=== PATIENT | female | born 1945 | race Caucasian/White ===

== ENCOUNTER 2018-03-15 11:26 | Inpatient (IN) | payer OTHER ==
[~2018-03-15] VITALS: Ht 152.4 cm; Wt 53.0 kg
[~2018-03-15 11:26] MED LIST: ACET300T4 PO; CARI-277 PO; ENAL2.5T PO; LEVO150T68 PO; LEVO175T31 PO; VENL150C2 PO
[2018-03-15 13:05] LABS: Anion Gap 13 (5-15); Blood Urea Nitrogen 36 mg/dL (7-18); Carbon Dioxide 19 mmol/L (21-32); Chloride 95 mmol/L (98-107); Glucose 199 mg/dL (74-106); Potassium 4.4 mmol/L (3.5-5.1); Sodium 127 mmol/L (136-145)
[2018-03-15 13:06] LABS: Hemoglobin 11.3 g/dL (12.2-16.2)
[2018-03-15 13:07] LABS: Alanine Aminotransferase 11 U/L (13-56); Aspartate Aminotransferase 5 U/L (15-37); BUN/Creatinine Ratio 46.2; GFR African American 93 mL/min; GFR Non-African American 77 mL/min; Hematocrit 34.2 % (36.0-46.0); Mean Corpuscular Hemoglobin 29.6 pg (28.0-32.0); Mean Corpuscular Hgb Conc. 33.1 g/dL (32.0-36.0); Mean Corpuscular Volume 89.3 fL (80.0-100.0); Platelet Count (auto) 738 10^3/uL (140-450); Red Blood Cells 3.83 10^6/uL (4.0-5.20); Red Cell Distribution Width 15.2 % (11.8-14.3); White Blood Cell 22.6 10^3/uL (4.4-10.8)
[2018-03-15 13:11] LABS: Alkaline Phosphatase 122 U/L (45-117); Bilirubin, Total 0.2 mg/dL (0.2-1.0)
[2018-03-15 13:12] LABS: Basophils % (manual) 0 (0.0-2.0); Blast Cells 0; Eosinophils % (manual) 0 (0-7); Metamyelocytes % 0; Myelocytes % 0; Promyelocytes % 0; Reactive Lymphocytes 0
[2018-03-15] MEDS ORDERED: SODIUM CHLORIDE 0.9% 1,000 ML IVB ONE (13:33)
[2018-03-15] MEDS ORDERED: LEVOFLOXACIN 250MG 50 ML IV ONE (13:45)
[2018-03-15] MEDS ORDERED: metroNIDAZOLE 500MG/100ML 100 ML IV ONE (13:45)
[2018-03-15] MEDS ORDERED: ONDANSETRON HCL 4 MG/2 ML VIAL IV ONE (13:45)
[2018-03-15] MEDS ORDERED: MORPHINE SULFATE 4 MG/ML SYR/VIAL IV ONE (14:00)
[2018-03-15] MEDS ORDERED: SODIUM CHLORIDE 0.9% 1,000 ML IV SCH (14:07)
[2018-03-15] MEDS ORDERED: LEVOFLOXACIN 500MG 100 ML IV ONE (14:15)
[2018-03-15] MEDS ORDERED: PANTOPRAZOLE 40 MG/10 ML VIAL IV ONE (14:15)
[2018-03-15] MEDS ORDERED: NITROGLYCERIN 0.4 MG SL TAB SL PRN (14:15)
[2018-03-15] MEDS ORDERED: MORPHINE SULFATE 4 MG/ML SYR/VIAL IV PRN (14:15)
[2018-03-15] MEDS ORDERED: GASTROGRAFIN 30 ML SOL ONE (14:16)
[2018-03-15 14:21] LABS: Magnesium 1.8 mg/dL (1.6-2.6)
[2018-03-15 14:27] LABS: Band Neutrophils % (manual) 5; Lymphocytes % (manual) 3 (10.0-50.0); Monocytes % (manual) 4 (0-12)
[2018-03-15 14:28] LABS: INR 1.2 (0.9-1.15); Partial Thromboplastin Time 30.1 sec (23.78-33.04); Prothrombin Time 12.7 sec (9.27-12.13)
[2018-03-15] MEDS: SODIUM CHLORIDE 0.9% 1,000 ML IV SCH (14:59)
[2018-03-15] MEDS: MORPHINE SULFATE 4 MG/ML SYR/VIAL IV PRN ×2 (15:18→19:34)
[2018-03-15 15:24] LABS: Lactic Acid w/Reflex 3.5 mmol/L (0.4-2.0)
[2018-03-15] MEDS ORDERED: HYDROmorphone HCL 2 MG/ML VL IV ONE (16:00)
[2018-03-15] MEDS ORDERED: IOHEXOL 300 MG/ML 100ML BOTTLE IJ ONE (16:31)
[2018-03-15] MEDS: metroNIDAZOLE 500MG/100ML 100 ML IV SCH (17:33)
[2018-03-15] MEDS: ACCU-CHEK COMFORT CURVE STRIP VI SCH (17:43)
[2018-03-15] MEDS: InsuLIN REG 1unit/0.01ml Soln (100units/ml) SC SCH (17:49)
[2018-03-15] MEDS ORDERED: ALBUTEROL SULF 2.5 MG/0.5ML(0.5%) NEB SOLN NEB PRN (20:00)
[2018-03-15 21:07] VITALS: BP 117/72
[2018-03-15 22:37] VITALS: BP 98/66
[2018-03-16] VITALS (56 sets, daily range): BP systolic 75–136; BP diastolic 48–96
[2018-03-16] MEDS: PANTOPRAZOLE 40 MG/10 ML VIAL IV SCH ×3 (00:35→21:24)
[2018-03-16] MEDS: metroNIDAZOLE 500MG/100ML 100 ML IV SCH ×5 (00:35→23:33)
[2018-03-16] MEDS: ACCU-CHEK COMFORT CURVE STRIP VI SCH ×5 (00:35→23:33)
[2018-03-16] MEDS: SODIUM CHLORIDE 0.9% 1,000 ML IV SCH ×3 (00:36→22:17)
[2018-03-16] MEDS: InsuLIN REG 1unit/0.01ml Soln (100units/ml) SC SCH ×5 (00:52→23:33)
[2018-03-16] MEDS: IPRATROPIUM BROM 0.5 MG/2.5ML INH SOL NEB SCH ×4 (01:00→18:57)
[2018-03-16] MEDS: ALBUTEROL SULF 2.5 MG/0.5ML(0.5%) NEB SOLN NEB SCH ×6 (01:00→18:57)
[2018-03-16] MEDS: DEXTROSE (50%) 50ML SYRG IV PRN ×3 (01:00→23:34)
[2018-03-16 01:27] LABS: Hemoglobin 13.2 g/dL (12.2-16.2)
[2018-03-16] MEDS ORDERED: HYDROmorphone HCL 2 MG/ML VL IV ONE (01:30)
[2018-03-16] MEDS ORDERED: D5W/SOD CHLO 0.9% 1,000 ML IV SCH (01:30)
[2018-03-16] MEDS ORDERED: VANCOMYCIN PER PHARMACY 0 MG IV SCH ×2 (03:15→07:15)
[2018-03-16] MEDS ORDERED: VANCOMYCIN 1GM/250ML 250 ML IV ONE (03:30)
[2018-03-16] MEDS ORDERED: ONDANSETRON HCL 4 MG/2 ML VIAL ONE (04:10)
[2018-03-16] MEDS ORDERED: ONDANSETRON HCL 4 MG/2 ML VIAL IV ONE ×2 (04:10→06:45)
[2018-03-16] MEDS ORDERED: HYDROmorphone HCL 2 MG/ML VL ONE ×2 (04:45→06:11)
[2018-03-16] MEDS ORDERED: fentaNYL CITRATE 100 MCG/2 ML VL ONE (04:45)
[2018-03-16] MEDS ORDERED: ETOMIDATE (2MG/ML) 20ML VIAL IV ONE (04:45)
[2018-03-16] MEDS ORDERED: DEXAMETHASONE SOD PHOS 10MG/1ML VIAL INJ ONE (04:45)
[2018-03-16] MEDS ORDERED: MIDAZOLAM HCL 1MG/1ML-2 ML VIAL ONE ×2 (04:45→06:12)
[2018-03-16] MEDS ORDERED: ROCURONIUM 10MG/ML 10ML VIAL IV ONE (04:46)
[2018-03-16 04:47] LABS: Basophils # (auto) 0 uL; Basophils % (auto) 0.1 % (0.0-2.0); Eosinophils # (auto) 0 uL; Hematocrit 37.7 % (36.0-46.0); Hemoglobin 12.1 g/dL (12.2-16.2); Lymphocytes # (auto) 0.4 uL; Lymphocytes % (auto) 2.5 % (10.0-50.0); Mean Corpuscular Hemoglobin 28.9 pg (28.0-32.0); Mean Corpuscular Hgb Conc. 32.2 g/dL (32.0-36.0); Mean Corpuscular Volume 89.7 fL (80.0-100.0); Monocytes # (auto) 0.5 uL; Monocytes % (auto) 2.9 % (0.0-12.0); Neutrophils # (auto) 16.1 uL; Neutrophils % (auto) 94.5 % (37.0-80.0); Platelet Count (auto) 579 10^3/uL (140-450); Red Blood Cells 4.21 10^6/uL (4.0-5.20); Red Cell Distribution Width 15.3 % (11.8-14.3); White Blood Cell 17.1 10^3/uL (4.4-10.8)
[2018-03-16] MEDS ORDERED: metroNIDAZOLE 500MG/100ML 100 ML IV ONE (04:50)
[2018-03-16 04:55] LABS: Albumin 1.7 g/dL (3.4-5.0); Calcium 7.6 mg/dL (8.5-10.1); Potassium 4.8 mmol/L (3.5-5.1)
[2018-03-16 04:58] LABS: BUN/Creatinine Ratio 34.2; Bilirubin, Total 0.2 mg/dL (0.2-1.0); Total Protein 4.7 g/dL (6.4-8.2)
[2018-03-16] MEDS ORDERED: SUCCINYLCHOLINE CHLORIDE 20 MG/ML 10ML VIAL IV ONE (05:01)
[2018-03-16] MEDS ORDERED: ePHEDrine SULFATE 50 MG/ML AMP IV PRN (06:45)
[2018-03-16] MEDS ORDERED: MIDAZOLAM HCL 1MG/1ML-2 ML VIAL IV PRN (06:45)
[2018-03-16] MEDS ORDERED: HYDROmorphone HCL 2 MG/ML VL IV PRN (06:45)
[2018-03-16] MEDS ORDERED: LABETALOL HCL 5 MG/ML 4ML SYRINGE IV PRN (06:45)
[2018-03-16] MEDS ORDERED: MORPHINE SULFATE 4 MG/ML SYR/VIAL IV PRN (06:45)
[2018-03-16] MEDS: MIDAZOLAM DRIP 50 mg/50mL 50 ML IV SCH ×3 (07:13→23:33)
[2018-03-16] MEDS: ALBUMIN 25% 50 ML IV SCH ×3 (07:15→23:33)
[2018-03-16] MEDS ORDERED: D5W/SOD CHL 0.45%/KCL 20MEQ 1,000 ML IV ONE (07:15)
[2018-03-16] MEDS ORDERED: MIDAZOLAM DRIP 50 mg/50mL 50 ML IV ONE (07:48)
[2018-03-16] MEDS ORDERED: MORPHINE SULFATE 4 MG/ML SYR/VIAL IV ONE (08:00)
[2018-03-16] MEDS ORDERED: TPN PER PHARMACY 0 ML IV SCH (09:45)
[2018-03-16] MEDS ORDERED: LEVOFLOXACIN 250MG 50 ML IV SCH (10:00)
[2018-03-16] MEDS ORDERED: LEVOFLOXACIN 500MG 100 ML IV SCH ×2 (10:00→11:00)
[2018-03-16] MEDS ORDERED: VANCOMYCIN 750 MG in D5W 5% 250 ML IV SCH (11:00)
[2018-03-16] MEDS ORDERED: SODIUM BICARBONATE 8.4 % INJ 50ML VIAL IV ONE (11:15)
[2018-03-16] MEDS ORDERED: metroNIDAZOLE 500MG/100ML 100 ML IV SCH (14:00)
[2018-03-16] MEDS ORDERED: LIDOCAINE 1% (LOCAL ANESTH.) PF 5ml SDV ID ONE (14:00)
[2018-03-16 14:15] LABS: Magnesium 1.9 mg/dL (1.6-2.6); Phosphorus 4.2 mg/dL (2.5-4.90)
[2018-03-16 14:19] LABS: Pre Albumin 9.2 mg/dL (20.0-40.0)
[2018-03-16] MEDS: VANCOMYCIN 750 MG in D5W 5% 250 ML IV SCH (15:59)
[2018-03-16] MEDS ORDERED: AMINO ACID INFUSION IN D10W 1,000 ML IV ONE (20:00)
[2018-03-16] MEDS: SODIUM CHLOR 0.9% PF (SALINE LOCK) 10ML VIAL/SYR IV SCH (21:25)
[2018-03-16] MEDS ORDERED: fentaNYL Drip 2500mCg/250mlNS 250 ML IV ONE (23:11)
[2018-03-16] MEDS ORDERED: NOREPINEPHRINE 8 MG/250ML KIT 250 ML IV ONE (23:11)
[2018-03-16] MEDS: fentaNYL Drip 2500mCg/250mlNS 250 ML IV SCH (23:15)
[2018-03-16] MEDS: NOREPINEPHRINE 8 MG/250ML KIT 250 ML IV SCH (23:15)
[2018-03-17] VITALS (110 sets, daily range): BP systolic 81–150; BP diastolic 38–94
[2018-03-17] MEDS: IPRATROPIUM BROM 0.5 MG/2.5ML INH SOL NEB SCH ×4 (00:21→20:46)
[2018-03-17] MEDS: ALBUTEROL SULF 2.5 MG/0.5ML(0.5%) NEB SOLN NEB SCH ×5 (00:21→20:46)
[2018-03-17 03:12] LABS: Basophils # (auto) 0 uL; Basophils % (auto) 0.2 % (0.0-2.0); Eosinophils # (auto) 0 uL; Eosinophils % (auto) 0.1 % (0.0-7.0); Hematocrit 20.9 % (36.0-46.0); Hemoglobin 7.1 g/dL (12.2-16.2); Lymphocytes # (auto) 0.5 uL; Lymphocytes % (auto) 4.9 % (10.0-50.0); Mean Corpuscular Hgb Conc. 33.8 g/dL (32.0-36.0); Mean Corpuscular Volume 88.8 fL (80.0-100.0); Monocytes # (auto) 0.5 uL; Monocytes % (auto) 4.4 % (0.0-12.0); Neutrophils % (auto) 90.4 % (37.0-80.0); Nucleated Red Blood Cells % 0.1 %; Platelet Count (auto) 346 10^3/uL (140-450); Red Blood Cells 2.35 10^6/uL (4.0-5.20); Red Cell Distribution Width 15.3 % (11.8-14.3); White Blood Cell 11.1 10^3/uL (4.4-10.8)
[2018-03-17 03:28] LABS: INR 2.39 (0.9-1.15); Partial Thromboplastin Time 57.6 sec (23.78-33.04); Prothrombin Time 24.3 sec (9.27-12.13)
[2018-03-17 03:35] LABS: Albumin 1.2 g/dL (3.4-5.0); Anion Gap 10 (5-15); Blood Urea Nitrogen 29 mg/dL (7-18); Calcium 6.1 mg/dL (8.5-10.1); Carbon Dioxide 18 mmol/L (21-32); Chloride 110 mmol/L (98-107); Glucose 106 mg/dL (74-106); Magnesium 1.3 mg/dL (1.6-2.6); Potassium 3.3 mmol/L (3.5-5.1); Sodium 138 mmol/L (136-145)
[2018-03-17 03:38] LABS: Alanine Aminotransferase < 6 U/L (13-56); Alkaline Phosphatase 75 U/L (45-117); Aspartate Aminotransferase 10 U/L (15-37); BUN/Creatinine Ratio 35.8; Bilirubin, Total < 0.1 mg/dL (0.2-1.0); GFR African American 89 mL/min; GFR Non-African American 74 mL/min; Phosphorus 2.3 mg/dL (2.5-4.90); Total Protein 3.3 g/dL (6.4-8.2)
[2018-03-17] MEDS: MIDAZOLAM DRIP 50 mg/50mL 50 ML IV SCH ×3 (04:33→13:47)
[2018-03-17] MEDS: POTASSIUM CHL 20MEQ/100ML 100 ML IV SCH ×2 (04:34→06:12)
[2018-03-17] MEDS: metroNIDAZOLE 500MG/100ML 100 ML IV SCH ×4 (05:16→23:17)
[2018-03-17] MEDS: InsuLIN REG 1unit/0.01ml Soln (100units/ml) SC SCH ×4 (05:16→23:18)
[2018-03-17] MEDS: ACCU-CHEK COMFORT CURVE STRIP VI SCH ×4 (05:16→23:17)
[2018-03-17] MEDS: SODIUM CHLORIDE 0.9% 1,000 ML IV SCH (05:48)
[2018-03-17] MEDS: SODIUM CHLOR 0.9% PF (SALINE LOCK) 10ML VIAL/SYR IV SCH ×2 (10:01→22:01)
[2018-03-17] MEDS: PANTOPRAZOLE 40 MG/10 ML VIAL IV SCH ×2 (10:01→22:01)
[2018-03-17] MEDS: LEVOFLOXACIN 250MG 50 ML IV SCH (10:27)
[2018-03-17] MEDS: MAGNESIUM SULFATE 1GM/100ML 100 ML IV SCH ×2 (10:34→11:48)
[2018-03-17] MEDS: D5W/SOD CHL 0.45%/KCL 20MEQ 1,000 ML IV SCH ×2 (12:54→23:21)
[2018-03-17] MEDS: VANCOMYCIN 750 MG in D5W 5% 250 ML IV SCH (17:15)
[2018-03-17 17:23] LABS: Hematocrit 28.8 % (36.0-46.0); Hemoglobin 9.5 g/dL (12.2-16.2)
[2018-03-17 18:31] LABS: Urine Bacteria FEW /hpf (None Seen); Urine Blood 1+ /uL (Negative); Urine Mucus FEW (None Seen); Urine Specific Gravity 1.027 (1.001-1.035); Urine WBC 2 /hpf (0 - 5)
[2018-03-17] MEDS: MORPHINE SULFATE 4 MG/ML SYR/VIAL IV PRN (19:35)
[2018-03-17] MEDS ORDERED: TPN PER PHARMACY IV NR ×9 (20:00)
[2018-03-17] MEDS: LORazepam 2MG/ML-1ML VIAL IV PRN (22:21)
[2018-03-17] MEDS: fentaNYL Drip 2500mCg/250mlNS 250 ML IV SCH (23:06)
[2018-03-17] MEDS: NOREPINEPHRINE 8 MG/250ML KIT 250 ML IV SCH (23:08)
[2018-03-18] VITALS (47 sets, daily range): BP systolic 100–164; BP diastolic 51–103
[2018-03-18] MEDS: IPRATROPIUM BROM 0.5 MG/2.5ML INH SOL NEB SCH ×4 (00:12→18:55)
[2018-03-18] MEDS: ALBUTEROL SULF 2.5 MG/0.5ML(0.5%) NEB SOLN NEB SCH ×6 (00:12→18:56)
[2018-03-18] MEDS: MORPHINE SULFATE 4 MG/ML SYR/VIAL IV PRN (01:16)
[2018-03-18 03:06] LABS: Basophils # (auto) 0.1 uL; Basophils % (auto) 0.7 % (0.0-2.0); Eosinophils # (auto) 0 uL; Eosinophils % (auto) 0.1 % (0.0-7.0); Hematocrit 28.8 % (36.0-46.0); Hemoglobin 9.9 g/dL (12.2-16.2); Lymphocytes # (auto) 0.7 uL; Lymphocytes % (auto) 5.3 % (10.0-50.0); Mean Corpuscular Hemoglobin 29.6 pg (28.0-32.0); Mean Corpuscular Hgb Conc. 34.2 g/dL (32.0-36.0); Mean Corpuscular Volume 86.4 fL (80.0-100.0); Monocytes # (auto) 0.4 uL; Monocytes % (auto) 3.2 % (0.0-12.0); Neutrophils # (auto) 11.5 uL; Neutrophils % (auto) 90.7 % (37.0-80.0); Platelet Count (auto) 265 10^3/uL (140-450); Red Blood Cells 3.34 10^6/uL (4.0-5.20); Red Cell Distribution Width 15.5 % (11.8-14.3); White Blood Cell 12.7 10^3/uL (4.4-10.8)
[2018-03-18 03:16] LABS: Albumin 1.2 g/dL (3.4-5.0); Calcium 6.9 mg/dL (8.5-10.1); Magnesium 1.8 mg/dL (1.6-2.6); Potassium 3.3 mmol/L (3.5-5.1)
[2018-03-18 03:19] LABS: Bilirubin, Total 0.1 mg/dL (0.2-1.0); Phosphorus 1.6 mg/dL (2.5-4.90); Total Protein 3.8 g/dL (6.4-8.2)
[2018-03-18] MEDS: HYDROmorphone HCL 2 MG/ML VL IV PRN ×6 (05:09→21:37)
[2018-03-18] MEDS: ACCU-CHEK COMFORT CURVE STRIP VI SCH ×3 (05:09→18:19)
[2018-03-18] MEDS: metroNIDAZOLE 500MG/100ML 100 ML IV SCH ×3 (05:09→18:19)
[2018-03-18] MEDS: InsuLIN REG 1unit/0.01ml Soln (100units/ml) SC SCH ×3 (05:14→18:00)
[2018-03-18] MEDS ORDERED: POTASSIUM CHL 20MEQ/100ML 200 ML IV ONE (05:40)
[2018-03-18] MEDS ORDERED: hydrALAZINE HCL 20 MG/ML VL IV PRN (05:45)
[2018-03-18] MEDS: POTASSIUM CHL 20MEQ/100ML 100 ML IV SCH ×2 (05:47→08:27)
[2018-03-18] MEDS ORDERED: POTASSIUM PHOSPHATE 44 MEQ in D5W 5% 250 ML IV ONE (10:00)
[2018-03-18] MEDS ORDERED: SODIUM PHOSP 40 MEQ in D5W 5% 250 ML IV ONE (11:00)
[2018-03-18] MEDS: PANTOPRAZOLE 40 MG/10 ML VIAL IV SCH ×2 (11:50→21:36)
[2018-03-18] MEDS: SODIUM CHLOR 0.9% PF (SALINE LOCK) 10ML VIAL/SYR IV SCH ×2 (11:50→21:36)
[2018-03-18] MEDS: LEVOFLOXACIN 250MG 50 ML IV SCH (11:50)
[2018-03-18] MEDS: PROMETHAZINE HCL 25 MG/ML 1ML IV PRN ×2 (11:56→19:22)
[2018-03-18] MEDS: VANCOMYCIN 750 MG in D5W 5% 250 ML IV SCH (16:06)
[2018-03-18] MEDS ORDERED: TPN PER PHARMACY IV NR ×10 (20:00)
[2018-03-19] VITALS: BP 136/70
[2018-03-19] MEDS: IPRATROPIUM BROM 0.5 MG/2.5ML INH SOL NEB SCH ×4 (00:19→18:37)
[2018-03-19] MEDS: ALBUTEROL SULF 2.5 MG/0.5ML(0.5%) NEB SOLN NEB SCH ×3 (00:19→11:29)
[2018-03-19] MEDS: PROMETHAZINE HCL 25 MG/ML 1ML IV PRN ×3 (01:44→09:59)
[2018-03-19] MEDS: HYDROmorphone HCL 2 MG/ML VL IV PRN ×4 (01:44→09:59)
[2018-03-19] MEDS: D5W/SOD CHL 0.45%/KCL 20MEQ 1,000 ML IV SCH (02:15)
[2018-03-19 04:00] VITALS: BP 131/84
[2018-03-19 05:08] LABS: Basophils # (auto) 0 uL; Basophils % (auto) 0.2 % (0.0-2.0); Eosinophils # (auto) 0.1 uL; Eosinophils % (auto) 0.6 % (0.0-7.0); Hematocrit 35.4 % (36.0-46.0); Hemoglobin 12.1 g/dL (12.2-16.2); Lymphocytes # (auto) 0.8 uL; Mean Corpuscular Hemoglobin 29.2 pg (28.0-32.0); Mean Corpuscular Hgb Conc. 34.2 g/dL (32.0-36.0); Mean Corpuscular Volume 85.3 fL (80.0-100.0); Monocytes # (auto) 0.8 uL; Monocytes % (auto) 5.9 % (0.0-12.0); Neutrophils # (auto) 11.7 uL; Neutrophils % (auto) 87.3 % (37.0-80.0); Platelet Count (auto) 327 10^3/uL (140-450); Red Blood Cells 4.15 10^6/uL (4.0-5.20); Red Cell Distribution Width 15.5 % (11.8-14.3); White Blood Cell 13.5 10^3/uL (4.4-10.8)
[2018-03-19 05:15] LABS: INR 1.2 (0.9-1.15); Prothrombin Time 12.7 sec (9.27-12.13)
[2018-03-19 05:21] LABS: Albumin 1.3 g/dL (3.4-5.0); Calcium 7.1 mg/dL (8.5-10.1); Magnesium 1.8 mg/dL (1.6-2.6); Potassium 3.3 mmol/L (3.5-5.1)
[2018-03-19 05:24] LABS: BUN/Creatinine Ratio 25.5; Bilirubin, Total 0.3 mg/dL (0.2-1.0); Phosphorus 2.2 mg/dL (2.5-4.90); Total Protein 4.3 g/dL (6.4-8.2)
[2018-03-19] MEDS: metroNIDAZOLE 500MG/100ML 100 ML IV SCH ×5 (06:29→23:16)
[2018-03-19] MEDS: ACCU-CHEK COMFORT CURVE STRIP VI SCH ×5 (06:29→23:17)
[2018-03-19] MEDS: InsuLIN REG 1unit/0.01ml Soln (100units/ml) SC SCH ×5 (06:59→23:17)
[2018-03-19] MEDS ORDERED: PHENYLEPHRINE HCL 10 MG/ML VL IV ONE (09:02)
[2018-03-19] MEDS: LEVOFLOXACIN 250MG 50 ML IV SCH (10:03)
[2018-03-19] MEDS: PANTOPRAZOLE 40 MG/10 ML VIAL IV SCH ×2 (10:03→21:49)
[2018-03-19] MEDS: SODIUM CHLOR 0.9% PF (SALINE LOCK) 10ML VIAL/SYR IV SCH ×2 (10:04→21:50)
[2018-03-19] MEDS ORDERED: POTASSIUM PHOSPHATE 44 MEQ in D5W 5% 250 ML IV ONE (11:00)
[2018-03-19] MEDS: LORazepam 2MG/ML-1ML VIAL IV PRN ×2 (11:24→19:53)
[2018-03-19 12:00] VITALS: BP 150/81
[2018-03-19] MEDS ORDERED: LORazepam 2MG/ML-1ML VIAL IV PRN (12:30)
[2018-03-19] MEDS ORDERED: POTASSIUM CHL 20MEQ/100ML 100 ML IV ONE (12:30)
[2018-03-19] MEDS ORDERED: LEVALBUTEROL HYDROCHLORIDE 0.63 MG/3 ML NEB SOLN NEB PRN (12:45)
[2018-03-19] MEDS: SODIUM CHLORIDE 0.9% 1,000 ML IV SCH (13:57)
[2018-03-19] MEDS ORDERED: LEVOFLOXACIN 250MG 50 ML IV ONE (15:00)
[2018-03-19] MEDS: MAGNESIUM SULFATE 1GM/100ML 100 ML IV SCH ×2 (15:06→16:13)
[2018-03-19] MEDS: MORPHINE SULFATE 4 MG/ML SYR/VIAL IV PRN ×2 (15:12→23:16)
[2018-03-19 16:13] VITALS: BP 156/101
[2018-03-19] MEDS ORDERED: FUROSEMIDE 20 MG/2 ML VIAL ONE (17:19)
[2018-03-19] MEDS ORDERED: FUROSEMIDE 20 MG/2 ML VIAL IV ONE ×2 (17:30→19:45)
[2018-03-19 19:35] VITALS: BP 148/107
[2018-03-19] MEDS ORDERED: LORazepam 2MG/ML-1ML VIAL ONE (19:36)
[2018-03-19] MEDS ORDERED: TPN PER PHARMACY IV NR ×12 (20:00)
[2018-03-19] MEDS ORDERED: LEVALBUTEROL HCL 1.25 MG/3 ML NEB NEB PRN (20:45)
[2018-03-19] MEDS: VANCOMYCIN 750 MG in D5W 5% 250 ML IV SCH (21:50)
[2018-03-19] MEDS: VANCOMYCIN 1GM/250ML 250 ML IV SCH (22:18)
[2018-03-19] MEDS: BUDESONIDE (INHALATION) 0.5 MG/2 ML NEB NEB SCH (22:40)
[2018-03-20] VITALS: BP 126/91
[2018-03-20] MEDS: IPRATROPIUM BROM 0.5 MG/2.5ML INH SOL NEB SCH ×6 (00:54→22:27)
[2018-03-20 04:00] VITALS: BP 126/95
[2018-03-20] MEDS: ACCU-CHEK COMFORT CURVE STRIP VI SCH ×3 (06:17→18:08)
[2018-03-20] MEDS: metroNIDAZOLE 500MG/100ML 100 ML IV SCH ×4 (06:17→23:12)
[2018-03-20] MEDS: InsuLIN REG 1unit/0.01ml Soln (100units/ml) SC SCH ×3 (06:19→18:00)
[2018-03-20 06:27] LABS: Basophils # (auto) 0 uL; Eosinophils # (auto) 0 uL; Eosinophils % (auto) 0.2 % (0.0-7.0); Hematocrit 38.5 % (36.0-46.0); Hemoglobin 13.1 g/dL (12.2-16.2); Lymphocytes # (auto) 0.7 uL; Lymphocytes % (auto) 4.7 % (10.0-50.0); Mean Corpuscular Hemoglobin 29.1 pg (28.0-32.0); Mean Corpuscular Volume 85.6 fL (80.0-100.0); Monocytes % (auto) 7.1 % (0.0-12.0); Nucleated Red Blood Cells % 0.1 %; Platelet Count (auto) 352 10^3/uL (140-450); Red Blood Cells 4.49 10^6/uL (4.0-5.20); Red Cell Distribution Width 15.4 % (11.8-14.3); White Blood Cell 14.7 10^3/uL (4.4-10.8)
[2018-03-20 06:47] LABS: Albumin 1.4 g/dL (3.4-5.0); Calcium 7.6 mg/dL (8.5-10.1); Magnesium 2.4 mg/dL (1.6-2.6); Potassium 4.1 mmol/L (3.5-5.1)
[2018-03-20 06:50] LABS: Bilirubin, Total 0.3 mg/dL (0.2-1.0); Phosphorus 2.5 mg/dL (2.5-4.90); Total Protein 4.9 g/dL (6.4-8.2)
[2018-03-20] MEDS: LORazepam 2MG/ML-1ML VIAL IV PRN ×2 (07:59→23:11)
[2018-03-20 08:00] VITALS: BP 137/97
[2018-03-20] MEDS: SODIUM CHLORIDE 0.9% 1,000 ML IV SCH (08:30)
[2018-03-20] MEDS: PANTOPRAZOLE 40 MG/10 ML VIAL IV SCH ×2 (09:48→21:30)
[2018-03-20] MEDS: LEVOFLOXACIN 500MG 100 ML IV SCH (09:48)
[2018-03-20] MEDS: SODIUM CHLOR 0.9% PF (SALINE LOCK) 10ML VIAL/SYR IV SCH ×2 (09:48→21:31)
[2018-03-20] MEDS ORDERED: GASTROGRAFIN 30 ML SOL ONE (10:20)
[2018-03-20] MEDS: BUDESONIDE (INHALATION) 0.5 MG/2 ML NEB NEB SCH ×2 (10:29→22:27)
[2018-03-20] MEDS: FUROSEMIDE 40 MG/4 ML VIAL IV SCH (10:29)
[2018-03-20] MEDS ORDERED: LORazepam 2MG/ML-1ML VIAL IV ONE (11:30)
[2018-03-20 11:50] VITALS: BP 128/52
[2018-03-20] MEDS: MORPHINE SULFATE 4 MG/ML SYR/VIAL IV PRN ×2 (12:40→21:31)
[2018-03-20] MEDS ORDERED: IOHEXOL 350 MG/ML 100ML IJ ONE (13:28)
[2018-03-20 15:50] VITALS: BP 118/84
[2018-03-20] MEDS ORDERED: IPRATROPIUM BROM 0.5 MG/2.5ML INH SOL NEB SCH (18:00)
[2018-03-20] MEDS ORDERED: IPRATROPIUM BROM 0.5 MG/2.5ML INH SOL NEB PRN (18:00)
[2018-03-20] MEDS: LEVALBUTEROL HCL 1.25 MG/3 ML NEB NEB SCH ×2 (18:25→22:27)
[2018-03-20] MEDS: ACETYLCYSTEINE 20%(200MG/ML) SOL 4ML NEB SCH ×2 (18:26→22:00)
[2018-03-20 19:46] VITALS: BP 120/93
[2018-03-20] MEDS ORDERED: TPN PER PHARMACY IV NR ×12 (20:00)
[2018-03-20] MEDS: VANCOMYCIN 1GM/250ML 250 ML IV SCH (21:30)
[2018-03-21] VITALS (7 sets, daily range): BP systolic 100–128; BP diastolic 69–83
[2018-03-21] MEDS: ACCU-CHEK COMFORT CURVE STRIP VI SCH ×5 (00:05→23:40)
[2018-03-21] MEDS: InsuLIN REG 1unit/0.01ml Soln (100units/ml) SC SCH ×5 (00:06→23:40)
[2018-03-21] MEDS: MORPHINE SULFATE 4 MG/ML SYR/VIAL IV PRN ×4 (01:58→21:04)
[2018-03-21] MEDS: IPRATROPIUM BROM 0.5 MG/2.5ML INH SOL NEB SCH ×9 (02:00→22:32)
[2018-03-21] MEDS: LEVALBUTEROL HCL 1.25 MG/3 ML NEB NEB SCH ×6 (02:00→22:33)
[2018-03-21] MEDS: SODIUM CHLORIDE 0.9% 1,000 ML IV SCH (04:30)
[2018-03-21] MEDS: metroNIDAZOLE 500MG/100ML 100 ML IV SCH ×4 (05:55→23:39)
[2018-03-21] MEDS: ACETYLCYSTEINE 20%(200MG/ML) SOL 4ML NEB SCH ×3 (07:28→22:32)
[2018-03-21 08:13] LABS: Basophils # (auto) 0 uL; Basophils % (auto) 0.1 % (0.0-2.0); Eosinophils # (auto) 0.1 uL; Eosinophils % (auto) 0.5 % (0.0-7.0); Hematocrit 38.3 % (36.0-46.0); Hemoglobin 12.8 g/dL (12.2-16.2); Lymphocytes # (auto) 0.8 uL; Lymphocytes % (auto) 4.5 % (10.0-50.0); Mean Corpuscular Hemoglobin 28.6 pg (28.0-32.0); Mean Corpuscular Hgb Conc. 33.4 g/dL (32.0-36.0); Mean Corpuscular Volume 85.6 fL (80.0-100.0); Monocytes # (auto) 1.3 uL; Monocytes % (auto) 6.8 % (0.0-12.0); Neutrophils # (auto) 16.1 uL; Neutrophils % (auto) 88.1 % (37.0-80.0); Platelet Count (auto) 353 10^3/uL (140-450); Red Blood Cells 4.47 10^6/uL (4.0-5.20); Red Cell Distribution Width 15.5 % (11.8-14.3); White Blood Cell 18.3 10^3/uL (4.4-10.8)
[2018-03-21 08:19] LABS: Albumin 1.3 g/dL (3.4-5.0); Calcium 7.4 mg/dL (8.5-10.1); Magnesium 2.2 mg/dL (1.6-2.6); Potassium 3.9 mmol/L (3.5-5.1)
[2018-03-21 08:23] LABS: BUN/Creatinine Ratio 34.5; Bilirubin, Total 0.2 mg/dL (0.2-1.0); Phosphorus 3.1 mg/dL (2.5-4.90); Total Protein 4.6 g/dL (6.4-8.2)
[2018-03-21] MEDS: FUROSEMIDE 40 MG/4 ML VIAL IV SCH (10:34)
[2018-03-21] MEDS: LEVOFLOXACIN 500MG 100 ML IV SCH (10:34)
[2018-03-21] MEDS: PANTOPRAZOLE 40 MG/10 ML VIAL IV SCH ×2 (10:34→21:29)
[2018-03-21] MEDS: SODIUM CHLOR 0.9% PF (SALINE LOCK) 10ML VIAL/SYR IV SCH ×2 (10:34→21:29)
[2018-03-21] MEDS: BUDESONIDE (INHALATION) 0.5 MG/2 ML NEB NEB SCH ×2 (10:44→18:25)
[2018-03-21] MEDS ORDERED: TPN PER PHARMACY IV NR ×11 (20:00)
[2018-03-21] MEDS: VANCOMYCIN 1GM/250ML 250 ML IV SCH (21:29)
[2018-03-22] MEDS: LORazepam 2MG/ML-1ML VIAL IV PRN ×2 (00:05→19:36)
[2018-03-22] MEDS: SODIUM CHLORIDE 0.9% 1,000 ML IV SCH ×2 (00:30→20:30)
[2018-03-22] MEDS: IPRATROPIUM BROM 0.5 MG/2.5ML INH SOL NEB SCH ×7 (02:00→22:30)
[2018-03-22] MEDS: LEVALBUTEROL HCL 1.25 MG/3 ML NEB NEB SCH ×7 (02:00→22:30)
[2018-03-22] MEDS: MORPHINE SULFATE 4 MG/ML SYR/VIAL IV PRN ×3 (04:18→14:15)
[2018-03-22] MEDS: InsuLIN REG 1unit/0.01ml Soln (100units/ml) SC SCH ×2 (06:00→11:44)
[2018-03-22] MEDS: ACCU-CHEK COMFORT CURVE STRIP VI SCH ×2 (06:18→11:25)
[2018-03-22] MEDS: metroNIDAZOLE 500MG/100ML 100 ML IV SCH ×4 (06:19→23:50)
[2018-03-22 06:22] LABS: Basophils # (auto) 0 uL; Basophils % (auto) 0.1 % (0.0-2.0); Eosinophils # (auto) 0.1 uL; Eosinophils % (auto) 0.8 % (0.0-7.0); Hematocrit 34.6 % (36.0-46.0); Hemoglobin 11.6 g/dL (12.2-16.2); Lymphocytes # (auto) 1.2 uL; Mean Corpuscular Hgb Conc. 33.7 g/dL (32.0-36.0); Mean Corpuscular Volume 86.2 fL (80.0-100.0); Monocytes # (auto) 1.3 uL; Monocytes % (auto) 7.7 % (0.0-12.0); Neutrophils # (auto) 14.5 uL; Neutrophils % (auto) 84.4 % (37.0-80.0); Platelet Count (auto) 353 10^3/uL (140-450); Red Blood Cells 4.01 10^6/uL (4.0-5.20); White Blood Cell 17.2 10^3/uL (4.4-10.8)
[2018-03-22 06:30] VITALS: BP 131/91
[2018-03-22 06:40] LABS: Albumin 1.4 g/dL (3.4-5.0); Calcium 7.3 mg/dL (8.5-10.1); Magnesium 2.1 mg/dL (1.6-2.6); Potassium 3.8 mmol/L (3.5-5.1)
[2018-03-22 06:43] LABS: BUN/Creatinine Ratio 38.6; Bilirubin, Total 0.2 mg/dL (0.2-1.0); Phosphorus 3.2 mg/dL (2.5-4.90); Total Protein 4.4 g/dL (6.4-8.2)
[2018-03-22] MEDS: ACETYLCYSTEINE 20%(200MG/ML) SOL 4ML NEB SCH ×3 (06:47→19:03)
[2018-03-22] MEDS: BUDESONIDE (INHALATION) 0.5 MG/2 ML NEB NEB SCH ×2 (06:47→19:03)
[2018-03-22 08:15] VITALS: BP 116/84
[2018-03-22] MEDS: LEVOFLOXACIN 500MG 100 ML IV SCH (10:18)
[2018-03-22] MEDS: FUROSEMIDE 40 MG/4 ML VIAL IV SCH (10:18)
[2018-03-22] MEDS: SODIUM CHLOR 0.9% PF (SALINE LOCK) 10ML VIAL/SYR IV SCH ×2 (10:18→22:31)
[2018-03-22] MEDS: PANTOPRAZOLE 40 MG/10 ML VIAL IV SCH ×2 (10:18→22:31)
[2018-03-22 11:53] VITALS: BP 95/73
[2018-03-22 15:49] VITALS: BP 127/88
[2018-03-22 19:56] VITALS: BP 122/64
[2018-03-22] MEDS ORDERED: TPN PER PHARMACY IV NR ×11 (20:00)
[2018-03-22] MEDS: VANCOMYCIN 1GM/250ML 250 ML IV SCH (22:31)
[2018-03-23] VITALS: BP 101/70
[2018-03-23] MEDS: MORPHINE SULFATE 4 MG/ML SYR/VIAL IV PRN ×4 (01:32→21:33)
[2018-03-23] MEDS: IPRATROPIUM BROM 0.5 MG/2.5ML INH SOL NEB SCH ×6 (02:00→22:12)
[2018-03-23] MEDS: LEVALBUTEROL HCL 1.25 MG/3 ML NEB NEB SCH ×6 (02:00→22:12)
[2018-03-23 04:00] VITALS: BP 121/83
[2018-03-23 05:29] LABS: Basophils # (auto) 0 uL; Basophils % (auto) 0.1 % (0.0-2.0); Eosinophils # (auto) 0.1 uL; Eosinophils % (auto) 0.4 % (0.0-7.0); Hematocrit 33.6 % (36.0-46.0); Hemoglobin 11.1 g/dL (12.2-16.2); Lymphocytes # (auto) 1.3 uL; Lymphocytes % (auto) 9.4 % (10.0-50.0); Mean Corpuscular Hemoglobin 28.4 pg (28.0-32.0); Mean Corpuscular Hgb Conc. 33.1 g/dL (32.0-36.0); Mean Corpuscular Volume 85.8 fL (80.0-100.0); Monocytes # (auto) 1.1 uL; Monocytes % (auto) 7.7 % (0.0-12.0); Neutrophils # (auto) 11.6 uL; Neutrophils % (auto) 82.4 % (37.0-80.0); Platelet Count (auto) 370 10^3/uL (140-450); Red Blood Cells 3.92 10^6/uL (4.0-5.20); Red Cell Distribution Width 15.9 % (11.8-14.3); White Blood Cell 14.1 10^3/uL (4.4-10.8)
[2018-03-23 05:46] LABS: Albumin 1.4 g/dL (3.4-5.0); BUN/Creatinine Ratio 36.1; Calcium 7.5 mg/dL (8.5-10.1); Potassium 4.5 mmol/L (3.5-5.1)
[2018-03-23] MEDS: metroNIDAZOLE 500MG/100ML 100 ML IV SCH ×4 (05:47→23:30)
[2018-03-23 05:48] LABS: Bilirubin, Total 0.3 mg/dL (0.2-1.0); Total Protein 4.6 g/dL (6.4-8.2)
[2018-03-23] MEDS: ACETYLCYSTEINE 20%(200MG/ML) SOL 4ML NEB SCH ×3 (06:29→18:55)
[2018-03-23 07:45] VITALS: BP 124/78
[2018-03-23] MEDS: LEVOFLOXACIN 500MG 100 ML IV SCH (10:00)
[2018-03-23] MEDS: PANTOPRAZOLE 40 MG/10 ML VIAL IV SCH ×2 (10:00→21:33)
[2018-03-23] MEDS: FUROSEMIDE 40 MG/4 ML VIAL IV SCH (10:01)
[2018-03-23] MEDS: SODIUM CHLOR 0.9% PF (SALINE LOCK) 10ML VIAL/SYR IV SCH ×2 (10:16→21:33)
[2018-03-23] MEDS: BUDESONIDE (INHALATION) 0.5 MG/2 ML NEB NEB SCH ×2 (10:31→18:55)
[2018-03-23 12:01] VITALS: BP 89/65
[2018-03-23 16:15] VITALS: BP 113/78
[2018-03-23] MEDS: SODIUM CHLORIDE 0.9% 1,000 ML IV SCH (16:30)
[2018-03-23] MEDS: LORazepam 2MG/ML-1ML VIAL IV PRN (17:19)
[2018-03-23 19:47] VITALS: BP 99/73
[2018-03-23] MEDS: VANCOMYCIN 1GM/250ML 250 ML IV SCH (21:33)
[2018-03-24] VITALS (7 sets, daily range): BP systolic 90–149; BP diastolic 71–90
[2018-03-24] MEDS: MORPHINE SULFATE 4 MG/ML SYR/VIAL IV PRN ×3 (01:57→13:28)
[2018-03-24] MEDS: IPRATROPIUM BROM 0.5 MG/2.5ML INH SOL NEB SCH ×6 (02:00→22:33)
[2018-03-24] MEDS: LEVALBUTEROL HCL 1.25 MG/3 ML NEB NEB SCH ×6 (02:00→22:33)
[2018-03-24] MEDS: metroNIDAZOLE 500MG/100ML 100 ML IV SCH ×3 (05:21→18:00)
[2018-03-24 05:45] LABS: Basophils # (auto) 0 uL; Basophils % (auto) 0.1 % (0.0-2.0); Eosinophils # (auto) 0.1 uL; Eosinophils % (auto) 0.5 % (0.0-7.0); Hematocrit 34.2 % (36.0-46.0); Hemoglobin 11.2 g/dL (12.2-16.2); Lymphocytes # (auto) 1.3 uL; Lymphocytes % (auto) 7.8 % (10.0-50.0); Mean Corpuscular Hemoglobin 28.6 pg (28.0-32.0); Mean Corpuscular Hgb Conc. 32.7 g/dL (32.0-36.0); Mean Corpuscular Volume 87.2 fL (80.0-100.0); Monocytes # (auto) 1.2 uL; Monocytes % (auto) 6.9 % (0.0-12.0); Neutrophils # (auto) 14.5 uL; Neutrophils % (auto) 84.7 % (37.0-80.0); Platelet Count (auto) 385 10^3/uL (140-450); Red Blood Cells 3.92 10^6/uL (4.0-5.20); Red Cell Distribution Width 15.6 % (11.8-14.3); White Blood Cell 17.1 10^3/uL (4.4-10.8)
[2018-03-24] MEDS: ACETYLCYSTEINE 20%(200MG/ML) SOL 4ML NEB SCH ×3 (06:07→22:34)
[2018-03-24] MEDS: LORazepam 2MG/ML-1ML VIAL IV PRN ×3 (09:21→21:34)
[2018-03-24] MEDS: PANTOPRAZOLE 40 MG/10 ML VIAL IV SCH ×2 (09:57→21:34)
[2018-03-24] MEDS: LEVOFLOXACIN 500MG 100 ML IV SCH (09:58)
[2018-03-24] MEDS: FUROSEMIDE 40 MG/4 ML VIAL IV SCH (09:58)
[2018-03-24] MEDS: SODIUM CHLOR 0.9% PF (SALINE LOCK) 10ML VIAL/SYR IV SCH ×2 (09:58→21:35)
[2018-03-24] MEDS: MAGNESIUM SULFATE 1GM/100ML 100 ML IV SCH ×2 (09:59→11:00)
[2018-03-24] MEDS: BUDESONIDE (INHALATION) 0.5 MG/2 ML NEB NEB SCH ×2 (10:43→22:34)
[2018-03-24] MEDS: SODIUM CHLORIDE 0.9% 1,000 ML IV SCH (12:30)
[2018-03-24 14:53] LABS: Urine Bacteria FEW /hpf (None Seen); Urine Blood Negative /uL (Negative); Urine Specific Gravity 1.018 (1.001-1.035); Urine WBC 12 /hpf (0 - 5)
[2018-03-24] MEDS: PROMETHAZINE HCL 25 MG/ML 1ML IV PRN (20:26)
[2018-03-24] MEDS: VANCOMYCIN 1GM/250ML 250 ML IV SCH (21:34)
[2018-03-25] MEDS: metroNIDAZOLE 500MG/100ML 100 ML IV SCH ×4 (01:23→17:16)
[2018-03-25] MEDS: MORPHINE SULFATE 4 MG/ML SYR/VIAL IV PRN ×5 (01:34→21:10)
[2018-03-25] MEDS: LEVALBUTEROL HCL 1.25 MG/3 ML NEB NEB SCH ×6 (02:31→22:33)
[2018-03-25] MEDS: IPRATROPIUM BROM 0.5 MG/2.5ML INH SOL NEB SCH ×6 (02:31→22:32)
[2018-03-25 05:08] LABS: Basophils # (auto) 0 uL; Basophils % (auto) 0.1 % (0.0-2.0); Eosinophils # (auto) 0.1 uL; Eosinophils % (auto) 0.4 % (0.0-7.0); Hematocrit 39.7 % (36.0-46.0); Hemoglobin 12.6 g/dL (12.2-16.2); Lymphocytes # (auto) 1.3 uL; Lymphocytes % (auto) 7.9 % (10.0-50.0); Mean Corpuscular Hemoglobin 28.5 pg (28.0-32.0); Mean Corpuscular Hgb Conc. 31.7 g/dL (32.0-36.0); Monocytes % (auto) 5.8 % (0.0-12.0); Neutrophils # (auto) 14.2 uL; Neutrophils % (auto) 85.8 % (37.0-80.0); Nucleated Red Blood Cells % 0.1 %; Platelet Count (auto) 377 10^3/uL (140-450); Red Blood Cells 4.42 10^6/uL (4.0-5.20); Red Cell Distribution Width 16.7 % (11.8-14.3); White Blood Cell 16.6 10^3/uL (4.4-10.8)
[2018-03-25] MEDS: ACETYLCYSTEINE 20%(200MG/ML) SOL 4ML NEB SCH ×3 (05:55→22:32)
[2018-03-25 07:30] VITALS: BP 122/80
[2018-03-25] MEDS: SODIUM CHLORIDE 0.9% 1,000 ML IV SCH (08:30)
[2018-03-25 09:04] LABS: Anion Gap 10 (5-15); BUN/Creatinine Ratio 39.1; Blood Urea Nitrogen 25 mg/dL (7-18); Calcium 7.5 mg/dL (8.5-10.1); Carbon Dioxide 23 mmol/L (21-32); Chloride 99 mmol/L (98-107); GFR African American 117 mL/min; GFR Non-African American 97 mL/min; Glucose 97 mg/dL (74-106); Magnesium 2.1 mg/dL (1.6-2.6); Potassium 4.2 mmol/L (3.5-5.1); Sodium 132 mmol/L (136-145)
[2018-03-25] MEDS: FUROSEMIDE 40 MG/4 ML VIAL IV SCH (09:16)
[2018-03-25] MEDS: ENSURE CLEAR Mixed Berry 8oz Carton PO SCH ×3 (09:16→17:19)
[2018-03-25] MEDS: SODIUM CHLOR 0.9% PF (SALINE LOCK) 10ML VIAL/SYR IV SCH ×2 (09:17→22:27)
[2018-03-25] MEDS: PANTOPRAZOLE 40 MG/10 ML VIAL IV SCH ×2 (09:17→22:28)
[2018-03-25] MEDS: LEVOFLOXACIN 500MG 100 ML IV SCH (09:17)
[2018-03-25] MEDS: LORazepam 2MG/ML-1ML VIAL IV PRN ×3 (09:18→22:33)
[2018-03-25] MEDS: METOPROLOL TARTRATE 25 MG TAB PO SCH ×2 (10:00→22:00)
[2018-03-25] MEDS: ENALAPRIL MALEATE 2.5 MG TAB PO SCH (10:00)
[2018-03-25] MEDS ORDERED: NICOTINE 14 MG/24HR TOPICAL PATCH TD SCH (10:00)
[2018-03-25] MEDS: BUDESONIDE (INHALATION) 0.5 MG/2 ML NEB NEB SCH ×2 (10:20→22:33)
[2018-03-25 11:30] VITALS: BP 93/66
[2018-03-25] MEDS: NICOTINE 14 MG/24HR TOPICAL PATCH TD SCH (11:31)
[2018-03-25] MEDS: CARISOPRODOL 350 MG TAB PO SCH ×2 (15:14→22:46)
[2018-03-25] MEDS: methylPREDNISolone SOD SUCC 40 MG/ML VL IV SCH ×2 (15:14→22:28)
[2018-03-25 15:30] VITALS: BP 104/67
[2018-03-25 20:00] VITALS: BP 115/71
[2018-03-25] MEDS: VANCOMYCIN 1GM/250ML 250 ML IV SCH (22:39)
[2018-03-26 00:30] VITALS: BP 143/94
[2018-03-26] MEDS: metroNIDAZOLE 500MG/100ML 100 ML IV SCH ×4 (00:51→17:30)
[2018-03-26] MEDS: MORPHINE SULFATE 4 MG/ML SYR/VIAL IV PRN ×5 (01:22→19:55)
[2018-03-26] MEDS: PROMETHAZINE HCL 25 MG/ML 1ML IV PRN ×2 (01:52→20:17)
[2018-03-26] MEDS: IPRATROPIUM BROM 0.5 MG/2.5ML INH SOL NEB SCH ×6 (02:31→22:53)
[2018-03-26] MEDS: LEVALBUTEROL HCL 1.25 MG/3 ML NEB NEB SCH ×6 (02:31→22:54)
[2018-03-26] MEDS: LORazepam 2MG/ML-1ML VIAL IV PRN ×2 (03:59→11:15)
[2018-03-26 04:03] VITALS: BP 118/89
[2018-03-26] MEDS: SODIUM CHLORIDE 0.9% 1,000 ML IV SCH (04:30)
[2018-03-26 05:12] LABS: Basophils # (auto) 0 uL; Eosinophils # (auto) 0 uL; Lymphocytes # (auto) 0.6 uL; Monocytes # (auto) 0.2 uL
[2018-03-26 05:14] LABS: Hematocrit 36.5 % (36.0-46.0); Hemoglobin 12.3 g/dL (12.2-16.2); Lymphocytes % (auto) 4.8 % (10.0-50.0); Mean Corpuscular Hemoglobin 28.7 pg (28.0-32.0); Mean Corpuscular Hgb Conc. 33.5 g/dL (32.0-36.0); Mean Corpuscular Volume 85.7 fL (80.0-100.0); Monocytes % (auto) 1.6 % (0.0-12.0); Neutrophils # (auto) 11.7 uL; Neutrophils % (auto) 93.6 % (37.0-80.0); Platelet Count (auto) 480 10^3/uL (140-450); Red Blood Cells 4.26 10^6/uL (4.0-5.20); Red Cell Distribution Width 15.8 % (11.8-14.3); White Blood Cell 12.5 10^3/uL (4.4-10.8)
[2018-03-26 05:30] LABS: BUN/Creatinine Ratio 35.6; Calcium 7.7 mg/dL (8.5-10.1); Magnesium 1.8 mg/dL (1.6-2.6); Potassium 4.3 mmol/L (3.5-5.1)
[2018-03-26] MEDS: methylPREDNISolone SOD SUCC 40 MG/ML VL IV SCH ×2 (05:37→22:16)
[2018-03-26] MEDS: ACETYLCYSTEINE 20%(200MG/ML) SOL 4ML NEB SCH ×3 (06:06→22:54)
[2018-03-26] MEDS: CARISOPRODOL 350 MG TAB PO SCH ×3 (06:16→22:17)
[2018-03-26] MEDS: LEVOTHYROXINE SODIUM 50 MCG TAB PO SCH (06:20)
[2018-03-26] MEDS ORDERED: PATIENTS OWN MEDICATION (Levothyroxine Sodium 175 MCG) PO SCH (07:00)
[2018-03-26 08:15] VITALS: BP 109/92
[2018-03-26] MEDS: BUDESONIDE (INHALATION) 0.5 MG/2 ML NEB NEB SCH ×2 (10:21→22:53)
[2018-03-26] MEDS: ENSURE CLEAR Mixed Berry 8oz Carton PO SCH ×3 (11:10→17:33)
[2018-03-26] MEDS: MAGNESIUM SULFATE 1GM/100ML 100 ML IV SCH ×2 (11:10→12:12)
[2018-03-26] MEDS: LEVOFLOXACIN 500MG 100 ML IV SCH (11:11)
[2018-03-26] MEDS: PANTOPRAZOLE 40 MG/10 ML VIAL IV SCH ×2 (11:11→22:16)
[2018-03-26] MEDS: FUROSEMIDE 40 MG/4 ML VIAL IV SCH (11:12)
[2018-03-26] MEDS: SODIUM CHLOR 0.9% PF (SALINE LOCK) 10ML VIAL/SYR IV SCH ×2 (11:12→22:17)
[2018-03-26] MEDS: METOPROLOL TARTRATE 25 MG TAB PO SCH ×2 (11:15→22:20)
[2018-03-26] MEDS: ENALAPRIL MALEATE 2.5 MG TAB PO SCH (11:15)
[2018-03-26] MEDS: NICOTINE 14 MG/24HR TOPICAL PATCH TD SCH (11:35)
[2018-03-26 12:00] VITALS: BP 103/73
[2018-03-26 16:00] VITALS: BP 106/77
[2018-03-26 19:55] VITALS: BP 102/74
[2018-03-26] MEDS: VANCOMYCIN 1GM/250ML 250 ML IV SCH (22:16)
[2018-03-26] MEDS: LORazepam 0.5 MG TAB PO PRN (22:20)
[2018-03-27] VITALS: BP 123/72
[2018-03-27] MEDS: metroNIDAZOLE 500MG/100ML 100 ML IV SCH ×3 (00:14→12:35)
[2018-03-27] MEDS: SODIUM CHLORIDE 0.9% 1,000 ML IV SCH (00:30)
[2018-03-27] MEDS: MORPHINE SULFATE 4 MG/ML SYR/VIAL IV PRN ×3 (01:14→17:39)
[2018-03-27] MEDS: PROMETHAZINE HCL 25 MG/ML 1ML IV PRN ×3 (01:14→17:53)
[2018-03-27] MEDS: LEVALBUTEROL HCL 1.25 MG/3 ML NEB NEB SCH ×4 (02:00→14:17)
[2018-03-27] MEDS: IPRATROPIUM BROM 0.5 MG/2.5ML INH SOL NEB SCH ×4 (02:00→14:17)
[2018-03-27 04:20] VITALS: BP 137/87
[2018-03-27] MEDS: CARISOPRODOL 350 MG TAB PO SCH ×2 (05:59→14:16)
[2018-03-27] MEDS: LEVOTHYROXINE SODIUM 50 MCG TAB PO SCH (05:59)
[2018-03-27] MEDS: ACETYLCYSTEINE 20%(200MG/ML) SOL 4ML NEB SCH ×2 (06:37→14:17)
[2018-03-27 07:45] VITALS: BP 122/89
[2018-03-27] MEDS: ENSURE CLEAR Mixed Berry 8oz Carton PO SCH ×2 (09:24→12:36)
[2018-03-27] MEDS: PANTOPRAZOLE 40 MG/10 ML VIAL IV SCH (09:25)
[2018-03-27] MEDS: LEVOFLOXACIN 500MG 100 ML IV SCH (09:25)
[2018-03-27] MEDS: FUROSEMIDE 40 MG/4 ML VIAL IV SCH (09:25)
[2018-03-27] MEDS: SODIUM CHLOR 0.9% PF (SALINE LOCK) 10ML VIAL/SYR IV SCH (09:25)
[2018-03-27] MEDS: methylPREDNISolone SOD SUCC 40 MG/ML VL IV SCH (09:26)
[2018-03-27] MEDS: METOPROLOL TARTRATE 25 MG TAB PO SCH (09:27)
[2018-03-27] MEDS: ENALAPRIL MALEATE 2.5 MG TAB PO SCH (09:27)
[2018-03-27] MEDS: NICOTINE 14 MG/24HR TOPICAL PATCH TD SCH (09:28)
[2018-03-27] MEDS: BUDESONIDE (INHALATION) 0.5 MG/2 ML NEB NEB SCH (10:36)
[2018-03-27 12:00] VITALS: BP 103/75
[2018-03-27] MEDS: LORazepam 0.5 MG TAB PO PRN (14:17)
[2018-03-27 16:00] VITALS: BP 99/77
[2018-03-27 16:46] VITALS: BP 122/78
== END 2018-03-27 18:06 | DRG 853 ==
LOC: EDBD 11:26 → ER 11:30 → EDUNIT# 11:30 → EDBD 11:30 → TELE 14:07 → TELE-CENTR 19:54 → ICU WEST 03-16 10:04 → DOU IN ICU 03-18 22:00
PROVIDERS: ADMIT Internal Medicine; ATTEND Internal Medicine Geriatric Medicine
PROC: 0DQV0ZZ Repair Mesentery, Open Approach (ICD-10-PCS; 2018-03-16)
PROC: 0DTF0ZZ Resection of Right Large Intestine, Open Approach (ICD-10-PCS; 2018-03-16)
PROC: 02HV33Z Insertion of Infusion Device into Superior Vena Cava, Percutaneous Approach (ICD-10-PCS; 2018-03-16)
PROC: 5A1945Z Respiratory Ventilation, 24-96 Consecutive Hours (ICD-10-PCS; 2018-03-16)
PROC: 0BH17EZ Insertion of Endotracheal Airway into Trachea, Via Natural or Artificial Opening (ICD-10-PCS; 2018-03-16)
PROC: 0DBA0ZZ Excision of Jejunum, Open Approach (ICD-10-PCS; principal; 2018-03-16 05:23)
PROC: 30233N1 Transfusion of Nonautologous Red Blood Cells into Peripheral Vein, Percutaneous Approach (ICD-10-PCS; 2018-03-17)
PROC: 5A09357 Assistance with Respiratory Ventilation, Less than 24 Consecutive Hours, Continuous Positive Airway Pressure (ICD-10-PCS; 2018-03-19)
DX: A41.9 Sepsis, unspecified organism (principal); K63.1 Perforation of intestine (nontraumatic); J96.01 Acute respiratory failure with hypoxia; E87.1 Hypo-osmolality and hyponatremia; J44.1 Chronic obstructive pulmonary disease with (acute) exacerbation; K92.1 Melena; D63.8 Anemia in other chronic diseases classified elsewhere; K52.9 Noninfective gastroenteritis and colitis, unspecified; G89.29 Other chronic pain; J44.9 Chronic obstructive pulmonary disease, unspecified; M54.5 Low back pain; E03.9 Hypothyroidism, unspecified; E78.5 Hyperlipidemia, unspecified; E87.6 Hypokalemia; I50.9 Heart failure, unspecified; E87.70 Fluid overload, unspecified; I11.0 Hypertensive heart disease with heart failure; I70.90 Unspecified atherosclerosis; Z90.49 Acquired absence of other specified parts of digestive tract; Z90.710 Acquired absence of both cervix and uterus; Z88.0 Allergy status to penicillin; Z88.1 Allergy status to other antibiotic agents; Z79.899 Other long term (current) drug therapy; Z90.81 Acquired absence of spleen
CPT/HCPCS: 36415; 36569; 36600; 71045; 71260; 74176; 74177; 80048; 80053; 80061; 80202; 81001; 82040; 82150; 82378; 82805; 82962; 83036; 83605; 83690; 83735; 83880; 84100; 84478; 84484; 85007; 85014; 85018; 85025; 85027; 85045; 85379; 85610; 85652; 85730; 86141; 86850; 86900; 86901; 86920; 87040; 87070; 87081; 87086; 87205; 93306; 94002; 94003; 94640; 94660; 94668; 94761; 96365; 96368; 96375; 96376; 97110; 97116; 97163; 97530; A6257; C9113; G0378; J0330; J1100; J1815; J1956; J2250; J2405; J3480; J3490; J7042; J7060; J7131